=== PATIENT | male | born 1965 | race Caucasian/White ===

== ENCOUNTER 2017-02-01 14:47 | Emergency (ER) | payer MEDICAID ==
[~2017-02-01] VITALS: Ht 170.2 cm; Wt 72.6 kg
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
--- NOTE | 2017-02-01 15:34 | NUR ---
PATIENT TRANSPORTED FOR XRAY.
[2017-02-01 16:34] VITALS: BP 135/90
--- NOTE | 2017-02-01 16:34 | NUR ---
Patient discharged to home in stable condition. Written and verbal after care instructions given. Patient verbalizes understanding of instruction.
== END 2017-02-01 16:35 | disposition home or self-care (01) ==
LOC: ER 14:49
DX: S20.212A Contusion of left front wall of thorax, initial encounter (principal); W18.39XA Other fall on same level, initial encounter; Y93.89 Activity, other specified; Y92.89 Other specified places as the place of occurrence of the external cause; Y99.9 Unspecified external cause status
CPT/HCPCS: 71100; 99284; A4606; Z7610